=== PATIENT | male | born 1975 | race Caucasian/White ===

== ENCOUNTER 2017-06-08 09:00 | Inpatient (IN) | payer OTHER ==
[~2017-06-08] VITALS: Ht 185.4 cm; Wt 65.8 kg
--- NOTE | ~2017-06-08 | DS ---
Unit #: [id number] #: [id number] Patient: YANET MATHIS [id number] [facility] [address] [place] [address] [id number] MR#: [id number] NAME: YANET MATHIS ROOM: 80 Age: 41 Sex: M Admission Date: 06/08/2017 : 1975 Discharge Date: 06/13/2017 Attending Physician: Davidson Hernandez M.D. Primary Care Physician: Generic Doctor Not In System DISCHARGE SUMMARY REASON FOR ADMISSION The patient is a 41-year-old , white male, admitted to the [facility] unit for alcohol detox. HOSPITAL COURSE The patient was admitted to the [facility] unit and continued on previously prescribed home medications. His stay in the hospital was otherwise fairly uneventful one. He participated actively within the therapeutic milieu and his Zoloft was increased to 150 mg daily given his complaints of increasing obsessive-compulsive symptoms. By 06/13/2017, arrangements were made for the patient to go to [facility]" and discharge was ordered. FINAL DIAGNOSES Alcohol use disorder; obsessive-compulsive disorder; alcoholic peripheral neuropathy. DISPOSITION ON DISCHARGE The patient is discharged on the following medications: Zoloft 150 mg b.i.d. for obsessive-compulsive disorder, Remeron 15 mg at bedtime for depression, and Protonix 40 mg daily for GERD. DISCHARGE INSTRUCTIONS No dietary or physical restrictions were placed upon the patient at the time of discharge. FOLLOWUP Followup will take place through the auspices of "[facility]." PROGNOSIS The patient's prognosis is considered good. Dictated by... Davidson Hernandez M.D. CB/adryan TD: 06/12/2017 23:08 JOB #: [id number] Unit #: [id number] #: [id number] Patient: YANET MATHIS DISCHARGE SUMMARY Page 1 of 1 X Davidson Hernandez MD X DISCHARGE SUMMARY
--- NOTE | ~2017-06-08 | A ---
[facility] Nutrition Therapy DATE: 06/11/17 Patient: YANET MATHIS Physician: SHIRAZ Address: [address] [place] [address] Room/Bed: [address], Zip: [place] [address] Admit Date: 06/08/17 Date of : [birth year] Height: 6 1 Weight: [phone] NUTRITIONAL ASSESSMENT: REASON: 2 NUTRITIONAL RISK POINTS- UNINTENTIONAL WEIGHT LOSS, CHEWING/SWALLOWING DIFFICULTIES PATIENT ADMITTED FOR ETOH DETOX PMH: PERIPHERAL NEUROPATHY, HTN Anthropometrics: HT: 73", WT: 145#, BMI: 19.1 Labs: NO LABS AVAILABLE Meds: ZOFOLT, REMERON, PROTONIX, DETOX PROTOCOL Assessment: PATIENT IS A 41 Y/O MALE ADMITTED FOR ETOH ABUSE. PATIENT IS CURRENTLY UNEMPLOYED, LIVES WITH HIS GIRLFRIEND, SMOKES 2 PPD, AND HAS DAILY ETH ABUSE (INCLUDES 15 BEERS AND 1/8 GALLON VODKA DAILY). PATIENT RELAPSED OVER A MONTH AGO AND HAS BEEN DRINKING AT THAT RATE SINCE. PATIENT HAS A HX OF CHEMICAL DEPENDENCY TREATMENT. PER NEEDS ASSESSMENT PATIENT STATED A POOR APPETITE WITH A 45 # WEIGHT LOSS OVER LAST 6 MONTHS AND HE HAS BEEN SLEEPING 4 HOURS/NIGHT. NURSING REPORTS FAIR PO INTAKES, PATIENT HAS BEEN CONFUSED AT TIMES, AND HE HAS SOME C/O NAUSEA. HE IS ACTIVELY DETOXING. REMERON AND PSYCH MEDS MAY CAUSE WEIGHT AND APPETITE FLUCTUATIONS. PATIENT IS NOTED TO HAVE ABRASIONS TO L-KNEE AND L-ELBOW WITH NO FURTHER SKIN BREAKDOWN NOTED ATT. PATIENT IS ON A REGULAR DIET WITH NO CAFFEINE, ENSURE TID, AND LARGE PORTION ENTREES. THERE ARE NO C/O CHEWING/SWALLOWING DIFFICULTIES NOTED ATT. Dx: UNINTENTIONAL WEIGHT LOSS R/T ETOH USE, CURRENT CONDITIONS AEB SELF-REPORTED WEIGHT LOSS, DECREASED APPETITE, 2 NUTRITIONAL RISK POINTS Intervention: REGULAR DIET, LARGE PORTIONS, SUPPLEMENTS, MEDS PER MD, PSYCH, DETOX Monitoring, Evaluation and Goals: 1. ADEQUATE PO INTAKES >50% OF MEALS 2. PREVENT, CORRECT MICRO/MACRO NUTRIENT DEFICIENCIES 3. WEIGHT; PREVENT FURTHER WEIGHT LOSS MONITOR: WEIGHTS, LABS, PO/FLUID INTAKES Recommendations: 1. CONTINUE REGULAR DIET WITH NO CAFFEINE, LARGE ENTREES, AND ENSURE TID TOLERATED. [facility] Nutrition Therapy DATE: 06/11/17 Patient: YANET MATHIS Physician: SHIRAZ Address: [address] [place] [address] Room/Bed: [address], Zip: [place] [address] Admit Date: 06/08/17 Date of : [birth year] Height: 6 1 Weight: [phone] 2. ENCOURAGE ADEQUATE PO AND FLUID INTAKES 3. OBTAIN WEIGHTS ROUTINELY (EVERY 3-4 DAYS) 4. IF PATIENT HAS C/O CHEWING/SWALLOWING DIFFICULTIES PLEASE CONSULT CONVENTION PLANNER FOR FURTHER EVALUATION RD TO F/U PER PROTOCOL AND PRN R/T PATIENT MILDLY COMPROMISED Respectfully, LOLA CHRISTIAN, RD, LD [facility] cc: client file
--- NOTE | ~2017-06-08 | PN ---
Unit #: [id number] #: [id number] Patient: YANET MATHIS [id number] [facility] [address] [place] [address] [id number] I MR#: [id number] NAME: YANET MATHIS ROOM: 80 Age: 41 Sex: M Admission Date: 06/08/2017 : 1975 Attending Physician: Davidson Hernandez M.D. Admitting Physician: Davidson Hernandez M.D. Primary Care Physician: Generic Doctor Not In System [facility] PROGRESS NOTES DATE 06/11/2017 DISCUSSION The patient continues to express a great deal of hesitance to consider discharge. He does in fact continue to exhibit symptoms of withdrawal having required a dose of Ativan just two hours ago related to elevated pulse. He is now expressing interest in possible referrals for [facility] and I will ask a social psychologist to see him regarding this. Again his expectations of inpatient are today firmly redirected. Dictated by... Davidson Hernandez M.D. CB/abhishek TD: 06/11/2017 23:20 JOB #: [id number] [facility] PROGRESS NOTES Page 1 of 1 X Davidson Hernandez MD X PROGRESS NOTE
--- NOTE | ~2017-06-08 | PN ---
Unit #: [id number] #: [id number] Patient: YANET MATHIS [id number] [facility] [address] [place] [address] [id number] I MR#: [id number] NAME: YANET MATHIS ROOM: P180 Age: 41 Sex: M Admission Date: 06/08/2017 : 1975 Attending Physician: Davidson Hernandez M.D. Admitting Physician: Davidson Hernandez M.D. Primary Care Physician: Yoni Doctor Not In System [facility] PROGRESS NOTES DATE 06/10/2017 DISCUSSION The patient offers no new complaints today. His detox continues uneventfully. He may anticipate a.m. discharge. Dictated by... Davidson Hernandez M.D. CB/abhishek TD: 06/10/2017 23:41 JOB #: [id number] [facility] PROGRESS NOTES Page 1 of 1 X Davidson Hernandez MD X PROGRESS NOTE
--- NOTE | ~2017-06-08 | HP ---
Unit #: [id number] #: [id number] Patient: ROSCOE MATHIS [id number] [place] [address] [id number] MR#: [id number] NAME: ROSCOE MATHIS ROOM: P180 Age: 41 Sex: M Admission Date: 06/08/2017 : 1975 Attending Physician: Davidson Hernandez M.D. Admitting Physician: Davidson Hernandez M.D. Primary Care Physician: Yoni Doctor Not In System HISTORY AND PHYSICAL HISTORY OF PRESENT ILLNESS Roscoe is a 41 year old admitted to [facility] because of his abuse of alcohol. He is detoxing. PAST MEDICAL HISTORY 1. History of alcohol abuse. 2. History of cardiac valvular disease, congenital pulmonary stenosis. a. Pulmonary valve replaced 2013. 3. Peripheral neuropathy. 4. High blood pressure. PAST SURGICAL HISTORY 1. As above. 2. Appendectomy. ALLERGIES No known drug allergies. SOCIAL HISTORY Smokes 2 packs per day. Drinks 15 beers on a daily basis. Denies illicit drug use. FAMILY HISTORY Medically noncontributory. REVIEW OF SYSTEMS CONSTITUTIONAL: No fever or chills. HEENT: Denies any sore throat, ear pain or runny nose. CARDIOVASCULAR: Denies chest pain, irregular heart rhythm or palpitations. CHEST: Denies shortness of breath or cough. No hemoptysis. GASTROINTESTINAL: Denies nausea, vomiting, diarrhea or chronic constipation. ENDOCRINE: Denies history of increased thirst or urination. No recent significant weight loss or gain. GENITOURINARY: Denies dysuria, frequency, or hematuria. SKIN: Denies any rashes. HEMATOLOGIC: Denies history of increased bleeding or bruising. MUSCULOSKELETAL: Denies any hot, swollen joints. No generalized muscle pain. EXTREMITIES: He does report constant burning and decreased feeling in his lower extremities. NEUROLOGIC: Denies problems with vision or speech. No frequent, severe headaches. No numbness, tingling or weakness in any extremities. Denies Unit #: [id number] #: [id number] Patient: ROSCOE MATHIS loss of bladder or bowel control. CURRENT MEDICATIONS 1. Detox protocol. 2. Zoloft 100 mg q. day. 3. Remeron 15 mg q.h.s. 4. Protonix 40 mg q. day. PHYSICAL EXAMINATION GENERAL: Alert, thin. No apparent distress. VITAL SIGNS: Blood pressure 142/82, heart rate 82, respirations 16, and temperature 99.2. WEIGHT: 145. HEIGHT: 6 feet 1 inches. SKIN: Warm and dry without rash. He does have an abrasion along his left knee and left elbow. Both areas have scabbed over. HEENT: Normocephalic. TMs not viewed. Oral and nasal passages clear. Conjunctivae clear. PERRLA. EOMs intact. NECK: Supple without lymphadenopathy or thyromegaly. HEART: Regular rate and rhythm regular with a 2/6 systolic murmur. LUNGS: Clear. ABDOMEN: Soft, nontender. : Not done. EXTREMITIES: No evidence of cyanosis, clubbing or edema. Moves all without focal deficit. NEUROLOGICAL: Grossly within normal limits. Cranial Nerves: II: Visual luque are intact. III, IV AND : Extraocular movements are intact. Pupils are equal, round and reactive to light. V: Facial sensation is grossly normal. VII: Facial movements and expression are normal. VIII: Auditory acuity grossly intact. IX, X: Uvula is midline. Phonation is normal. XI: Patient shrugs shoulders and turns head normally. XII: Tongue protrudes in the midline. Sensory and Motor Function: Sensory and motor sensation is grossly normal. Motor: moves all extremities well. Coordination: He walks with a slapping motion. Deep Tendon Reflexes: Intact. IMPRESSION Psychiatric admission. RECOMMENDATIONS PSYCHIATRIC: Per psychiatrist. MEDICAL: I see no contraindication to participate in this facility's activities. MEDICAL PROGNOSIS Good. MEDICAL CONDITION Stable. Dictated by... Cee Blue P.A.-C. for Juana Gould M.D. Unit #: [id number] #: [id number] Patient: ROSCOE MATHIS JPERRI/bzg TD: 06/09/2017 07:11 JOB #: [id number] HISTORY AND PHYSICAL Page 1 of 1 X Cee Blue HISTORY AND PHYSICAL
--- NOTE | ~2017-06-08 | PA ---
Unit #: [id number] #: [id number] Patient: YANET MATHIS [id number] [place] [address] [id number] I MR#: [id number] NAME: YANET MATHIS ROOM: P180 Age: 41 Sex: M Admission Date: 06/08/2017 : 1975 Date of Assessment: 06/08/2017 Attending Physician: Davidson Hernandez M.D. Admitting Physician: Davidson Hernandez M.D. Primary Care Physician: Generic Doctor Not In System PSYCHIATRIC ASSESSMENT IDENTIFYING INFORMATION The patient is a 41-year-old white male admitted to the [address] [place] [address] with a history of alcohol dependence. CHIEF COMPLAINT Alcohol. INFORMANT Patient, reliability is good. HISTORY OF PRESENT ILLNESS The patient is a 41-year-old white male with long history of alcohol dependence. He states that he drinks "about 15 beers a day." He reports approximately 2 weeks ago he was diagnosed with alcoholic polyneuropathy which had a surprisingly sudden onset that is now affecting his hands and feet. The patient reports that this is precipitant to coming to the hospital to seek treatment. The patient reports previous chemical dependence treatment at the [facility]. He is currently on no prescribed psychotropic medications. The patient denies suicidal or homicidal ideation. He denies recent changes in sleep, mood, or appetite. PAST PSYCHIATRIC HISTORY As noted previously, the patient was hospitalized on one occasion in the past for treatment of alcohol dependence and is prescribed sertraline by his primary care physician. MEDICATIONS Sertraline, mirtazapine, and Omeprazole. PAST MEDICAL HISTORY Significant for the aforementioned polyneuropathy as well as GERD. MEDICATIONS Sertraline, mirtazapine, and Omeprazole. ALLERGIES None. FAMILY HISTORY Noncontributory. SOCIAL HISTORY The patient lives with his "girlfriend." He reports substance use as Unit #: [id number] #: [id number] Patient: YANET MATHIS noted previously. He has not worked since last October. 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 MENTAL STATUS EXAMINATION Examination at this time reveals the patient to be a thin white male appearing stated age. She is in no apparent physical distress at the time of examination though he is somewhat tremulous. He is awake, alert, and oriented in all spheres. His mood is mildly dysphoric, his affect congruent. Speech is generally well coherent. There are no gross deficits in memory or cognition noted. Intelligence is judged to be in the average range based on fund of knowledge. The patient is cooperative throughout the interview. He is currently denying suicidal or homicidal ideation or psychotic features. Judgment and insight appear to be intact. ASSETS AND LIABILITIES The patient's assets: Motivation for change. Liabilities: Lack of resources, health issues. DIAGNOSTIC IMPRESSION 1. Alcohol use disorder. 2. Alcoholic polyneuropathy. 3. Mood disorder unspecified. 4. Gastroesophageal reflux disease. TREATMENT PLAN The patient remains hospitalized for safety and stabilization. We will continue previously prescribed medications, and a routine detoxification protocol has been initiated. The patient will participate in appropriate order of milieu activities. ESTIMATED LENGTH OF STAY 3 to 5 days. Dictated by... Davidson Hernandez M.D. JUANITA/gonzalo TD: 06/08/2017 15:52 JOB #: [id number] PSYCHIATRIC ASSESSMENT Page 1 of 1 X Davidson Hernandez MD X PSYCHIATRIC ASSESSMENT
== END 2017-06-13 10:45 | DRG 897 ==
LOC: EEVIPCON 09:00 → P1E 12:09
PROC: HZ2ZZZZ Detoxification Services for Substance Abuse Treatment (ICD-10-PCS; principal; 2017-06-08)
DX: F10.239 Alcohol dependence with withdrawal, unspecified (principal); G62.1 Alcoholic polyneuropathy; I10 Essential (primary) hypertension; F39 Unspecified mood [affective] disorder; K21.9 Gastro-esophageal reflux disease without esophagitis; F17.210 Nicotine dependence, cigarettes, uncomplicated; F42.9 Obsessive-compulsive disorder, unspecified